=== PATIENT | female | born 1985 | race African-American/Black ===

== ENCOUNTER 2017-02-26 10:42 | Emergency (ER) | payer OTHER, MEDICAID ==
[~2017-02-26] VITALS: Ht 160 cm; Wt 91.0 kg
[2017-02-26 10:44] VITALS: BP 156/106
== END 2017-02-26 11:30 | disposition left against medical advice (07) ==
LOC: ED 11:24
DX: K08.89 Other specified disorders of teeth and supporting structures (principal)
CPT/HCPCS: 99281

== ENCOUNTER 2017-04-05 17:40 | Emergency (ER) | payer OTHER, MEDICAID ==
[~2017-04-05] VITALS: Ht 160 cm; Wt 91.1 kg
[2017-04-05 17:41] VITALS: BP 154/96
[2017-04-05] MEDS ORDERED: LIDOCAINE 1%, 10ML INFIL ONE (18:00)
[2017-04-05] MEDS ORDERED: LIDOCAINE 1%, 20ML ONE (18:50)
[2017-04-05] MEDS ORDERED: BUPIVACAINE 0.25% ONE (18:50)
[2017-04-05] MEDS ORDERED: BUPIVACAINE/PF-EPI 0.25% 1:200K SQ ONE (19:00)
== END 2017-04-05 19:43 | disposition home or self-care (01) ==
LOC: ED 19:25
DX: K02.9 Dental caries, unspecified (principal)
CPT/HCPCS: 64400; 99284

== ENCOUNTER 2017-09-04 18:31 | Emergency (ER) | payer OTHER, MEDICAID ==
[~2017-09-04] VITALS: Ht 160 cm; Wt 87.0 kg
[2017-09-04 18:32] VITALS: BP 124/74
[2017-09-04 19:31] LABS: RAPID INFLUENZA A Negative (Negative); RAPID INFLUENZA B Negative (Negative)
== END 2017-09-04 19:57 | disposition home or self-care (01) ==
LOC: ED 19:51
DX: J02.8 Acute pharyngitis due to other specified organisms (principal); E03.9 Hypothyroidism, unspecified; F17.210 Nicotine dependence, cigarettes, uncomplicated; R05 Cough
CPT/HCPCS: 71046; 87081; 87400; 87880; 99285

== ENCOUNTER 2018-11-06 19:56 | Emergency (ER) | payer OTHER, MEDICAID ==
[~2018-11-06] VITALS: Ht 160 cm; Wt 92.2 kg
[2018-11-06] MEDS ORDERED: DEXAMETHASONE 4 MG TABLET PO ONE (21:30)
[2018-11-06] MEDS ORDERED: DEXAMETHASONE 4 MG TABLET ONE (21:37)
--- NOTE | 2018-11-06 21:40 | NUR ---
PT MEDICATED. VSS. PT HAS NO OTHER NEEDS.
--- NOTE | 2018-11-06 21:45 | NUR ---
Patient given discharge instructions and they have confirmed that they understand the instructions. Patient ambulatory with steady gait.
[2018-11-06 21:47] VITALS: BP 124/81
== END 2018-11-06 21:49 | disposition home or self-care (01) ==
LOC: ED 21:05
DX: J06.9 Acute upper respiratory infection, unspecified (principal)
CPT/HCPCS: 71046; 87081; 87880; 93005; 99284